=== PATIENT | female | born 1975 | race Caucasian/White ===

== ENCOUNTER → 2016-09-09 | Outpatient (CLI) | payer OTHER ==
[~2016-09-09] MED LIST: REGADENOSON 0.4 MG/5 ML DISP.SYRIN. IV ONE
--- NOTE | 2016-09-09 13:00 | PCVCIMAG ---
APPROVED REPORT Exam: Nuclear Stress Test Indication: Abnormal EKG, chest pain Patient Location: Out-Patient Stress Nurse: Kari Sanders RN, Elisabet Yoon RN [place] Tech:Laron Gómez NMTCB Ht: 5 ft 4 in Wt: 250 lbs BSA: 2.15 m2 HR: 98 bpm BP: 135/91 mmHg BMI: 42.9 Rhythm: Tachycardia Medical History Medical History: HTN Medications: Metformin, Losartan, Singulair, Metoprolol (held 24 hours) Imitrex Allergies: Cardizem Pretest Chest Pain Characteristics: No chest pain Physical Disabilities: Knees NM EXAM: Myocardial Perfusion REST/STRESS Imaging Protocol: Rest Tc-99m/Stress Tc-99m 1 day Resting Data Rest SPECT myocardial perfusion imaging was performed in supine position 45 minutes following the intravenous injection of 16.5 mCi of Tc-99m Sestamibi. Time of rest injection: 0900 Date: 09/09/2016 Pharmacologic Stress Pharmacologic stress test was performed by injecting Regadenoson 0.4 mg IV push followed by the intravenous injection of 46.2 mCi of Tc-99m Sestamibi. Time of stress injection: 1015 Date: 09/09/2016 The images were gated to evaluate regional wall motion and calculate left ventricular ejection fraction. Study Quality Study: Good Study Data Post stress, the left ventricular ejection was 73%.. SSS: 5 SRS: 5 SDS: 0 TID = 1.06. Perfusion No evidence of stress induced ischemia or prior myocardial infarction. There is a small area of mildly reduced uptake in the mid segment of the anterior wall which is seen on the stress images as well as the resting images. Wall Motion Normal left ventricular size and function with no regional wall motion abnormalities. Nuclear Conclusion No evidence of stress induced ischemia or prior myocardial infarction. Normal left ventricular size and function with no regional wall motion abnormalities. Post stress, the left ventricular ejection was 73%.. No prior study available for comparison. Interpreted by: Lam Gupta MD Electronically Approved: 09/09/2016 11:47:46 Stress Test Details Stress Test: Pharmacologic stress was paired with low level exercise. HR Resting HR: 98 bpmMax Heart Rate (APMHR): 181 bpm Max HR Achieved: 141 bpmTarget HR (85% APMHR): 153 bpm % of APMHR: 77 Recovery HR: 103 bpm BP Resting BP: 135/91 mmHg Max BP: 138/82 mmHg Recovery BP: 139/92 mmHg ECG Resting ECG: Sinus Rhythm Stress ECG: Sinus Tachycardia ST Change: Minimal depression, None Maximum ST Deviation: 0 mm Arrhythmia: None Recovery ECG: Sinus Tachycardia Recovery ST Change: None Clinical Reason for Termination: Completed protocol Stress Symptoms: Chest Pain Exercise duration: min 55 sec Exercise capacity: 1.6 METs Stress ECG Conclusion ECG: Non-ischemic Clinical: Non-ischemic <Conclusion> ECG: Non-ischemic Clinical: Non-ischemic
== END | disposition home or self-care (01) ==
LOC: EDSTATUS 09-01 11:46 → PCVCIMAG 09-01 12:58
PROVIDERS: ATTEND Internal Medicine
DX: I10 Essential (primary) hypertension (principal); R94.31 Abnormal electrocardiogram [ECG] [EKG]; E66.01 Morbid (severe) obesity due to excess calories; E11.9 Type 2 diabetes mellitus without complications; K75.81 Nonalcoholic steatohepatitis (NASH); Z88.8 Allergy status to other drugs, medicaments and biological substances; Z79.84 Long term (current) use of oral hypoglycemic drugs; Z90.49 Acquired absence of other specified parts of digestive tract; Z96.652 Presence of left artificial knee joint
CPT/HCPCS: 78452; 93017; A9500; G0463; J2785